=== PATIENT | male | born 1960 | race Caucasian/White ===

== ENCOUNTER 2018-01-26 16:12 | Observation (INO) | payer MEDICARE, OTHER ==
--- NOTE | 2018-01-26 16:38 | Emergency Department Record ---
History of Present Illness - General Chief Complaint: Shortness of breath Stated Complaint: NOEMY,HI HEART RATE Time Seen by Provider: 01/26/18 16:26 Source: Patient Mode of Arrival: Ambulatory Limitations: No limitations - History of Present Illness Initial Comments: 58 yo male presents with a rapid heart rate that started while walking his dogs. His heart rate has not slowed down with 1.5 hours of rest. He walks his dogs on a regular basis without the symptoms. No chest pain. He has a history of mitral valve replacement and repair in 2000 and 2013. He had a STEMI with cardiac arrest in 2013. This lead to emergent stent and then bypass. Bypass was at [facility]. No other recent illness. No cough. No edema. Recently he has not had any issues with his normal activity. No leg swelling. No history of DVT or PE. No immobilization MD Complaint: Shortness of breath Onset/Timin -: Hour(s) Improves With: Nothing Worsens With: Nothing Known History Of: Congestive heart failure Associated Symptoms: Denies other symptoms Treatments Prior to Arrival: None - Related Data Home Oxygen Therapy: No Allergies Allergy/AdvReac Type Severity Reaction Status Date / Time NO KNOWN DRUG ALLERGY Allergy Uncoded 01/31/14 10:10 Travel Screening - Travel/Exposure Within Last 30 Days Have you traveled within the last 30 days?: No Review of Systems Constitutional: Denies: Chills, Fever, Malaise, Weakness Eyes: Denies: Eye discharge ENT: Denies: Congestion, Throat pain Respiratory: Reports: Dyspnea. Denies: Cough, Hemoptysis, Stridor, Wheezes Cardiovascular: Reports: Palpitations. Denies: Chest pain, Syncope Endocrine: Denies: Fatigue, Polydipsia, Polyuria Gastrointestinal: Denies: Abdominal pain, Diarrhea, Nausea, Vomiting Genitourinary: Denies: Dysuria, Frequency, Hematuria Musculoskeletal: Denies: Arthralgia, Back pain, Joint swelling, Myalgia Skin: Denies: Bruising, Change in color, Rash Neurological: Denies: Confusion, Headache, Numbness, Weakness Psychiatric: Denies: Anxiety Hematological/Lymphatic: Denies: Blood Clots, Easy bleeding, Easy bruising, Swollen glands Past Medical History - SOCIAL HISTORY Smoking Status: Former smoker Alcohol Use: None Drug Use: None - RESPIRATORY Hx Respiratory Disorders: No - CARDIOVASCULAR Hx Cardio Disorders: Yes Hx Cardiac Cath: Yes Hx Chest Pain: Yes Hx CHF: Yes Hx Heart Attack: Yes Hx Hypertension: Yes Hx Irregular Heartbeat: Yes - NEURO Hx Neuro Disorders: No - GI Hx GI Disorders: No - Hx Genitourinary Disorders: No - ENDOCRINE Hx Endocrine Disorders: No - MUSCULOSKELETAL Hx Musculoskeletal Disorders: Yes Hx Arthritis: Yes Hx Osteoporosis: Yes Comment:: RA - PSYCH Hx Psych Problems: No - HEMATOLOGY/ONCOLOGY Hx Hematology/Oncology Disorders: No Family Medical History Any Significant Family History?: No Physical Exam - General General Appearance: Alert, Oriented x3, Cooperative, No acute distress Limitations: No limitations - Head Head exam: Normal inspection - Eye Eye exam: Normal appearance, PERRL. negative: Conjunctival injection, Scleral icterus - ENT ENT exam: Normal exam Ear exam: Normal external inspection Nasal Exam: Normal inspection Mouth exam: Normal external inspection Teeth exam: Normal inspection Throat exam: Normal inspection - Neck Neck exam: Normal inspection, Full ROM. negative: Tenderness - Respiratory Respiratory exam: Normal lung sounds bilaterally. negative: Accessory muscle use, Chest wall tenderness, Decreased breath sounds, Respiratory distress, Rhonchi, Stridor, Wheezes - Cardiovascular Cardiovascular Exam: Normal rhythm, Normal heart sounds, Tachycardia. negative : Diastolic murmur, Irregular rhythm, Systolic murmur Peripheral Pulses: 2+: Radial (R), Radial (L) - GI/Abdominal GI/Abdominal exam: Soft. negative: Tenderness - Rectal Rectal exam: Deferred - exam: Deferred - Extremities Extremities exam: Normal inspection, Full ROM, Normal capillary refill. negative: Tenderness - Back Back exam: Denies: CVA tenderness (R), CVA tenderness (L), Paraspinal tenderness , Tenderness, Vertebral tenderness - Neurological Neurological exam: Alert, Normal gait, Oriented X3 - Psychiatric Psychiatric exam: Normal affect, Normal mood - Skin Skin exam: Dry, Intact, Normal color, Warm Course Vital Signs 01/26/18 16:16 Temperature 97.5 F L Pulse Rate 126 H Respiratory 20 Rate Blood Pressure 154/85 Pulse Ox 98 - Reevaluation(s) Reevaluation #1: EKG Sinus tachycardia rate at 125, LBBB, axis L, ST CW BBB. No ST elevation. New LBBB since 10/25/14 01/26/18 16:39 01/26/18 17:21 The labs were reviewed No acute changes on the CBC The Troponin is negative The BNP is elevated at 447 The HR is improved at 88. 01/26/18 17:56 The CXR was reviewed Hyperinflation. No acute process The HR is down to low 90's. The patient remains asymptomatic 01/26/18 18:36 The patient was given the option of transfer to [facility] where his junior buyer is vs OBS at [facility] given ECHO and cardiology is available tomorrow He and his family elected to stay at [facility] if possible He is improved and stable for admission to [facility] The case was discussed with Dr Simmons The patient will be admitted to OBS on a monitor for his tachycardia, consult cardiology and ECHO 01/26/18 19:02 01/26/18 19:03 Medical Decision Making - Lab Data Result diagrams: 01/26/18 16:30 01/26/18 16:30 Disposition Disposition: Admit Clinical Impression: Tachycardia Disposition: Acute Care Hospital Transfer Decision to Admit: Admit from ER Decision to Admit Date: 01/26/18 Decision to Admit Time: 18:34 Condition: (2) Stable Forms: Patient Portal Access Time of Disposition: 18:34 Quality - Quality Measures Quality Measures: N/A - Blood Pressure Screening Does Patient Have Any of the Following: Active Dx of HTN Blood Pressure Classification: Pre-Hypertensive BP Reading Systolic Measurement: 154 Diastolic Measurement: 85 Screening for High Blood Pressure: Patient Exclusion, Hx of HTN [G9744]
[2018-01-26 16:53] LABS: BASO % 0.5 % (0-6); EOS % 3.3 % (0-6); GRAN % 65.6 % (47-80); HEMATOCRIT 44.2 % (42.0-52.0); HEMOGLOBIN 15.2 gm/dl (14.0-18.0); LYMPH % 21.2 % (16-45); MEAN CELL VOLUME 94.6 fl (81-97); MEAN CORPUSCULAR HEMOGLOBIN 32.5 pg (27-33); MEAN CORPUSCULAR HGB CONC 34.4 g/dl (32-36); MEAN PLATELET VOLUME 10.6 fl (7.4-10.4); MONO % 9.4 % (0-9); PLATELET COUNT 286 K/uL (130-400); RED BLOOD COUNT 4.67 M/uL (4.40-5.70); RED CELL DISTRIBUTION WIDTH 14.2 % (11.5-14.5); WHITE BLOOD COUNT W/O DIFF 7.6 K/uL (4.2-12.2)
[2018-01-26 16:59] LABS: BLOOD UREA NITROGEN 17 mg/dL (6-20)
[2018-01-26 17:00] LABS: CREATININE 1.2 mg/dL (0.7-1.2); EST GLOMERULAR FILTRATION RATE > 60 mL/min; TOTAL PROTEIN 7.9 g/dL (6.6-8.7)
[2018-01-26 17:02] LABS: GLUCOSE,RANDOM 129 mg/dL (74-109); PARTIAL THROMBOPLASTIN TIME 27.8 SECONDS (24.5-39.1); PROTHROMBIN TIME (PATIENT) 11.1 SECONDS (9.5-12.1)
[2018-01-26 17:05] LABS: ALB/GLOB RATIO 1.3 (1.1-1.8); ALBUMIN 4.5 g/dL (4.0-5.0); ALKALINE PHOSPHATASE 67 U/L (40-129); ALT/SGPT 37 U/L (<41); AST/SGOT 33 U/L (10.0-50.0)
[2018-01-26 17:16] LABS: THYROID STIMULATING HORMONE 2.22 uIU/mL (0.270-4.20)
[2018-01-26] MEDS ORDERED: 0.9 % SODIUM CHLORIDE 1000ML 1,000 ML IV PRN (20:00)
[2018-01-26] MEDS: CHOLECALCIFEROL 1,000 UNIT TABLET PO SCH (21:55)
[2018-01-26] MEDS: FOLIC ACID 1 MG TABLET PO SCH (21:55)
[2018-01-26] MEDS: METOPROLOL TART 25 MG TABLET PO SCH (21:55)
[2018-01-26] MEDS: FERROUS SULFATE 325 MG TAB PO SCH (21:55)
[2018-01-26] MEDS: HYDROXYCHLOROQUINE SULFATE 200 MG TABLET PO SCH (21:55)
[2018-01-26] MEDS ORDERED: DIPHENHYDRAMINE HCL 25 MG CAPSULE PO ONE (21:59)
[2018-01-26] MEDS ORDERED: ATORVASTATIN 20 MG TABLET PO SCH (22:00)
--- NOTE | 2018-01-27 07:22 | RADIOLOGY REPORT ---
EXAM: CHEST, TWO VIEWS HISTORY: CHEST PAIN. TECHNIQUE: Frontal and lateral views of the chest were obtained. Comparison: 10/25/14 chest. FINDINGS: The heart size is stable. Stable post surgical change. The lungs are hyperinflated, but clear. No pneumothorax. IMPRESSION: STABLE POST SURGICAL CHANGE AND UNDERLYING HYPERINFLATION. JOB NUMBER: [id number] MTDD
[2018-01-27] MEDS ORDERED: LISINOPRIL 5 MG TABLET PO SCH (10:00)
[2018-01-27] MEDS ORDERED: ENOXAPARIN 40 MG/0.4 ML SYR SQ SCH (10:00)
[2018-01-27] MEDS ORDERED: SPIRONOLACTONE 25 MG TAB PO SCH (10:00)
[2018-01-27] MEDS ORDERED: ASPIRIN 81 MG CHEWABLE TABLET PO SCH (10:00)
[2018-01-27] MEDS: FERROUS SULFATE 325 MG TAB PO SCH (10:10)
[2018-01-27] MEDS: CHOLECALCIFEROL 1,000 UNIT TABLET PO SCH (10:10)
[2018-01-27] MEDS: HYDROXYCHLOROQUINE SULFATE 200 MG TABLET PO SCH (10:10)
[2018-01-27] MEDS: FOLIC ACID 1 MG TABLET PO SCH (10:10)
[2018-01-27] MEDS: METOPROLOL TART 25 MG TABLET PO SCH (10:10)
--- NOTE | 2018-01-27 12:11 | History and Physical Report ---
This is an observation patient. DATE: 01/26/2018 CHIEF COMPLAINT: Tachycardia, palpitations while walking his dog. A 58-year-old male with a history of mitral valve replacement. HISTORY OF PRESENT ILLNESS: This 58-year-old male was walking his dog yesterday, became short of breath and his heart was racing. He was able to talk the last half mile home and rest. After about an hour, his heart was still going too fast. He went to the emergency department for evaluation and was evaluated by Dr. Blanco and admitted to the hospital for serial cardiac enzymes and cardiology consult. He has had a history of a mitral valve replacement in 2012. He had a STEMI with a cardiac arrest in 2013 and bypass surgery at [facility]. No history of DVT or PE or immobilization. PAST MEDICAL HISTORY: Open heart surgery at [facility] in [place] with mitral valve repair and then in 2012 a mitral valve replacement with bypass at [facility]. Somewhere along the line he had an OH with stents and emergency bypass and a cardiac arrest. He has had ankle surgery. He has had a history of congestive heart failure, coronary artery disease, hypertension, arthritis both rheumatoid and osteoarthritis, osteoporosis. PAST SURGICAL HISTORY: He has had heart surgery in and 2013 with a mitral valve replacement in 2013, STEMI and stents with open heart surgery bypass grafting [facility]. MEDICATIONS: 1. Methotrexate 10 mg weekly. 2. Ferrous sulfate 325 b.i.d. 3. Vitamin D3, 1000 units b.i.d. 4. Lipitor 40 mg daily. 5. Aspirin 81 mg daily. 6. Humira 40 mg weekly. 7. Lopressor 25 mg b.i.d. 8. Zestril 5 mg daily. 9. Plaquenil 200 mg b.i.d. 10. Folic acid 1 mg b.i.d. 11. Aldactone 12.5 daily. ALLERGIES: No known allergies. FAMILY/PSYCHOSOCIAL HISTORY: No significant family history. He is a former smoker. He stopped smoking in 2012. No drug or alcohol use. REVIEW OF SYSTEMS: HEENT: No upper respiratory infection symptoms, cough, cold, or congestion. Cardiovascular: No chest pain but he had palpitations, tachycardia, and shortness of breath. Respiratory: Short of breath. No cough, cold, or congestion. Ex-smoker, stopped in 2012. Gastrointestinal: No nausea, vomiting, diarrhea, black stools, or bloody stools. Genitourinary: No dysuria, hematuria, frequency, or burning on urination. Musculoskeletal: He has osteoarthritis, moving all 4 extremities. Neurological: No CVA, paralysis, or paresthesias. Endocrine: No diabetes or thyroid disease. Integument: No rash, ulcers, change in moles, or yellow skin. PHYSICAL EXAMINATION: VITALS: Height 5 feet 11 inches, weight 250 pounds. Temperature 97.7, pulse 64, blood pressure 136/97, respiratory rate 16, pulse ox 97% on room air, weight 250 pounds. HEENT: Pupils are equal, round, and reactive to light and accommodation. Extraocular muscles are intact. Throat is clear. Nose is clear. Tympanic membranes are blackman. NECK: Supple. No jugular venous distention. No hepatojugular reflux. No carotid bruits. Thyroid is smooth. CARDIOVASCULAR: Regular rate and rhythm without murmurs, clicks, rubs, or gallops. RESPIRATORY: Clear to auscultation and percussion. ABDOMEN: Soft, nontender. No hepatosplenomegaly, no masses, no tenderness. Bowel sounds are active. EXTREMITIES: No pitting edema. No cyanosis, no clubbing. Full range of motion. BREASTS: Normal male breasts. RECTAL: Exam deferred. GENITALIA: Deferred. NEUROLOGIC: Cranial nerves II-XII intact. No gross defects. Sensation normal, strength normal. Deep tendon reflexes equal bilaterally with Babinski negative. MENTAL STATUS: Alert and oriented x3. IMPRESSION: 1. Tachycardia. 2. Palpitations. 3. History of mitral valve replacement. 4. Abnormal EKG. Appears either possibly a second-degree heart block 4 to 1, type 2, or atrial flutter/fib. PLAN: Cardiology consult. Serial cardiac enzymes and so far 3 of them have been negative. He had a left bundle-branch block when his heart rate was fast. MTDD
--- NOTE | 2018-01-27 18:02 | Discharge Note ---
VTE H&P Assessment - Risk for VTE Risk for VTE: Yes Risk Level: Moderate Risk Assessment Date: 01/27/18 Risk Assessment Time: 09:00 VTE Orders Placed or Will Be Placed: Yes Discharge Medications - Discharge Medications Home Medications: Ambulatory Orders Adalimumab [Humira Pen Psoriasis-Uveitis] 40 mg SQ WEEKLY 02/04/14 [Last Taken 05/29/16] Aspirin Chewable 81 mg PO DAILY 02/04/14 [Last Taken 06/10/16] Ferrous Sulfate 325 mg PO BID 02/04/14 [Last Taken 06/10/16] Folic Acid 1 tab PO BID 02/04/14 [Last Taken 06/10/16] Lisinopril [Zestril] 5 mg PO DAILY 02/04/14 [Last Taken 06/09/16] Methotrexate Sodium [Methotrexate] 10 mg PO WEEKLY 02/04/14 [Last Taken 06/06/16 ] Metoprolol Tartrate [Lopressor] 25 mg PO BID 02/04/14 [Last Taken 06/10/16] Spironolactone [Aldactone] 12.5 mg PO DAILY 02/04/14 [Last Taken 06/10/16] Atorvastatin Calcium [Lipitor] 40 mg PO QHS 06/10/16 [Last Taken 06/10/16] Cholecalciferol (Vitamin D3) [Vitamin D3] 1,000 unit PO BID 06/10/16 [Last Taken 06/10/16] Hydroxychloroquine Sulfate [Plaquenil] 200 mg PO BID 06/10/16 [Last Taken ] Discharge Note - Date Date of Discharge Note: 01/27/18 Disposition: Home, Self-Care Condition: (2) Stable Additional Instructions: follow up with pediatric rn for further evaluation follow up with the [facility] primary in 1 [address] Nessa Mukherjee Forms: Patient Portal Access Activity at Discharge: Increase Activity as Tolerated
--- NOTE | 2018-01-28 05:53 | Medical Records Consult ---
DATE: 01/27/2018. HISTORY OF PRESENT ILLNESS: Mr. Jones is 58 years old and was referred for cardiology for tachycardia and palpitations. He was walking his dog the day prior to admission. He states he has two dogs and he usually walks each dog three miles. He states while walking the second dog he noted sudden onset of a fast heart rate. He went home and checked his blood pressure which was in the 150s/90s. His heart rates remained in the 120s, and therefore he presented to [facility] due to his history of heart disease. Mr. Jones has a remote history of mitral valve ring placement and single-vessel coronary bypass in 2000 at [facility] in [place]. In 2012 he presented with an acute myocardial infarction and had stent placement at [facility]. He was then referred to the [facility] for mitral valve replacement with a bioprosthetic valve. 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 He denies any recent angina, transient ischemic attack, syncope, or heart failure symptoms. His ECG demonstrated sinus tachycardia with a left bundle branch block. He had a subsequent ECG which demonstrated possible atrial flutter with rates in the 50s, normal R-wave progression, and a QRS of 129 milliseconds. PAST MEDICAL HISTORY: His past medical history includes coronary artery disease , mitral valve ring placement in 2000, mitral valve replacement in 2012, cardiac stent placement in 2012 at [facility], hypertension, rheumatoid arthritis, osteoporosis, and osteoarthritis. PAST SURGICAL HISTORY: His past surgical history includes a mitral valve ring replacement in 2000, coronary artery bypass times one in 2012, bioprosthetic mitral valve replacement at the [facility] also in 2012, coronary artery disease with stent placement at [facility], and ankle surgery. MEDICATIONS AT HOME: Aldactone 12.5 mg daily, Lopressor 25 mg b.i.d., Zestril 5.0 mg daily, Plaquenil 200 mg b.i.d., folic acid 1.0 mg b.i.d., Humira 40 mg weekly, aspirin 81 mg daily, Lipitor 40 mg daily, ferrous sulfate 325 mg b.i.d. , methotrexate 10 mg weekly. ALLERGIES: None. SOCIAL HISTORY: He is currently disabled. He denies tobacco or alcohol use currently. He is a former smoker. PHYSICAL EXAMINATION: Vital Signs: He is afebrile. Vital signs are currently stable. Lungs: Clear to auscultation. Cardiac: Cardiac examination is normal. Abdomen: The abdomen is obese. Extremities: The extremities reveal no edema. DIAGNOSTIC STUDIES: Telemetry demonstrates sinus rhythm with rates in the 60s. IMPRESSION AND PLAN: Mr. Jones presents with sudden onset of fast heart rates while walking dogs. He has a history of coronary artery disease and mitral valve replacement. We have no recent echocardiogram or further records to review. His cardiac enzymes and laboratory profile are within normal limits. His ECG currently demonstrates sinus rhythm with rates in the 60s. Mr. Jones may have had underlying atrial flutter versus atrial fibrillation. At this time, I recommend he just maintain his current home regimen. He can be safely discharged to follow up with his [facility] platform mill supervisor. Further workup can then be performed by them without having to transfer him now for further cardiac workup. JOB NUMBER: [id number] MTDD
--- NOTE | 2018-01-28 12:30 | Discharge Summary ---
DATE: 01/27/2018 DISCHARGE DIAGNOSES: 1. Tachycardia, resolved. 2. History of coronary artery disease. 3. History of mitral valve replacement. 4. Palpitations. ATTENDING PHYSICIAN: Shun Simmons DO REASON FOR HOSPITALIZATION: Tachycardia, palpitations while walking his dog, history of mitral valve replacement. This 58-year-old male was walking his dog yesterday, became short of breath and his heart was racing. He was able to walk the last half mile home. He rested for about an hour and still was tachycardic, came to the emergency department for evaluation. Dr. Blanco evaluated him and admitted him to the hospital for serial cardiac enzymes and cardiology consult. He had a history of mitral valve replacement in 2012. He had a STEMI with cardiac arrest in 2013, bypass surgery at [facility]. No history of DVT or PE or embolization recently. SIGNIFICANT FINDINGS: EKGs show a rate dependent left bundle-branch block. He has had possible either secondary heart block, 4-to-1 block, type II, or atrial fib/flutter atypical. Short run. He is now in normal sinus rhythm. Chest x-ray showed stable postsurgical changes, underlying hyperinflation. Cardiology consult with Dr. Garcia. [place] it was safe to go home. No signs of an NC. He felt because he had already seen the [facility] [place] strategic marketing manager, he recommends following up with them for further outpatient therapy if indicated. Also recommend he follow up with his primary [facility] doctor in 1-2 weeks. It may be hard to get into the strategic marketing manager but patient thought he could get directly in and I encouraged him to go ahead and call and see if he could get an appointment for followup. Otherwise, follow up with his primary [facility] doctor for further evaluation. His cardiac enzymes x3 were negative, troponin T. His brain natriuretic peptide was slightly elevated at 447.5. His BUN was 17, creatinine 1.2, white count 7600, hemoglobin 15.2. TSH was 2.22. THERAPY PROVIDED: He had cardiac monitoring and observation. He has been asymptomatic since coming into the hospital. HOSPITAL COURSE: Unremarkable and feeling much better. CONDITION ON DISCHARGE: Much improved. Discussed the case with Dr. Garcia, strategic marketing manager, and he recommended following up with the [facility] and the [facility] strategic marketing manager because he has already had quite a bit of a workup done already. DISCHARGE INSTRUCTIONS: Follow up with the [facility] primary doctor in 1-2 weeks, follow up with a strategic marketing manager, [facility] strategic marketing manager in 1-2 weeks. Continue his home medications and if he has any problems, return to the emergency department. His current medications are methotrexate 10 mg weekly, ferrous sulfate 325 b.i.d., vitamin D3 1000 units b.i.d., Lipitor 40 mg daily, aspirin 81 mg daily, Humira 40 mg weekly, Lopressor 25 mg b.i.d. Zestril 5 mg daily, Plaquenil 200 mg b.i.d., folic acid 1 mg b.i.d., Aldactone 12.5 mg daily. CC: Dr. Radha PARK
[2018-01-29] MEDS ORDERED: METHOTREXATE SODIUM 10 MG PO SCH (10:00)
[2018-02-02] MEDS ORDERED: ADALIMUMAB 40 MG SQ SCH (10:00)
== END 2018-01-27 18:33 | disposition home or self-care (01) ==
LOC: ER 16:12 → MEDSURG 19:46
PROVIDERS: ADMIT Emergency Medicine; ATTEND Emergency Medicine
DX: R00.0 Tachycardia, unspecified (principal); R00.2 Palpitations; I50.9 Heart failure, unspecified; M06.9 Rheumatoid arthritis, unspecified; I49.9 Cardiac arrhythmia, unspecified; I25.2 Old myocardial infarction; Z87.891 Personal history of nicotine dependence; Z95.2 Presence of prosthetic heart valve; Z79.01 Long term (current) use of anticoagulants
CPT/HCPCS: 85025; 85730; 85610; 80053; 84443; 84484 ×2; 83880; 71046; 93005 ×2; 93010 ×2; G0378 ×2; 99220; 99285

== ENCOUNTER 2018-03-05 00:53 | Emergency (ER) | payer MEDICARE ==
[2018-03-05] MEDS ORDERED: ASPIRIN 81 MG CHEWABLE TABLET PO ONE (01:07)
--- NOTE | 2018-03-05 01:09 | Emergency Department Record ---
History of Present Illness - General Chief Complaint: Palpitations Stated Complaint: PALPITATIONS Time Seen by Provider: 03/05/18 00:56 Source: Patient Mode of Arrival: Ambulatory Limitations: No limitations - History of Present Illness Initial Comments: 58 yo male presents to ED for evaluation or palpitations, fatigue, and exertional dyspnea for the past several weeks. Patient reports a history of atrial fibrillation s/p cardioversion 5 weeks ago, takes Eliquis as well. Patient also reports a history or AL that presented with similar symptoms, denies chest pain or discomfort when his AL occurred. Patient also reports minor cough, congestion symptoms x 5 days, is concerned about possible pneumonia. MD Complaint: Palpitations -: Days(s) Arrythmia History: Atrial fibrillation Associated Symptoms: Shortness of breath - Related Data Home Medications Medication Instructions Recorded Confirmed Last Taken Apixaban [Eliquis] 5 mg PO BID 03/05/18 03/05/18 03/04/18 Metoprolol Succinate 50 mg PO DAILY 03/05/18 03/05/18 03/04/18 Allergies Allergy/AdvReac Type Severity Reaction Status Date / Time No Known Drug Allergies Allergy Verified 03/05/18 00:54 Travel Screening - Travel/Exposure Within Last 30 Days Have you traveled within the last 30 days?: No - Travel Symptoms Symptom Screening: None Review of Systems Constitutional: Denies: Chills, Fever, Malaise, Night sweats Eyes: Denies: Eye discharge, Eye pain ENT: Reports: Congestion. Denies: Ear pain, Epistaxis Respiratory: Reports: Cough, Dyspnea Cardiovascular: Reports: Dyspnea on exertion. Denies: Chest pain Endocrine: Denies: Fatigue, Heat or cold intolerance Gastrointestinal: Denies: Abdominal pain, Nausea, Vomiting Genitourinary: Denies: Incontinence, Retention Musculoskeletal: Denies: Arthralgia, Back pain Skin: Denies: Bruising, Change in color Neurological: Denies: Abnormal gait, Confusion, Headache, Seizure Psychiatric: Denies: Anxiety Hematological/Lymphatic: Reports: Easy bleeding, Easy bruising. Denies: Anemia , Blood Clots Past Medical History - SOCIAL HISTORY Smoking Status: Former smoker - RESPIRATORY Hx Respiratory Disorders: No - CARDIOVASCULAR Hx Cardio Disorders: Yes Hx Cardiac Cath: Yes Hx Chest Pain: Yes Hx CHF: Yes Hx Heart Attack: Yes Hx Hypertension: Yes Hx Irregular Heartbeat: Yes (A-fib; cardioverted 01/2018) - NEURO Hx Neuro Disorders: No - GI Hx GI Disorders: No - Hx Genitourinary Disorders: No - ENDOCRINE Hx Endocrine Disorders: No - MUSCULOSKELETAL Hx Musculoskeletal Disorders: Yes Hx Arthritis: Yes (rheumatoid) Hx Osteoporosis: Yes - PSYCH Hx Psych Problems: No - HEMATOLOGY/ONCOLOGY Hx Hematology/Oncology Disorders: No Family Medical History Any Significant Family History?: Yes Hx HTN: Father Physical Exam - General General Appearance: Alert, Oriented x3, Cooperative, Mild distress Limitations: No limitations - Head Head exam: Atraumatic, Normocephalic, Normal inspection Head exam detail: negative: Abrasion, Contusion, Lugo's sign, General tenderness, Hematoma, Laceration - Eye Eye exam: Normal appearance. negative: Conjunctival injection, Periorbital swelling, Periorbital tenderness, Scleral icterus - ENT Ear exam: negative: Auricular hematoma, Auricular trauma Nasal Exam: negative: Active bleeding, Discharge, Dried blood, Foreign body Mouth exam: negative: Drooling, Laceration, Muffled voice, Tongue elevation - Neck Neck exam: Normal inspection. negative: Meningismus, Tenderness - Respiratory Respiratory exam: Normal lung sounds bilaterally. negative: Rales, Respiratory distress, Rhonchi, Stridor - Cardiovascular Cardiovascular Exam: Normal heart sounds, Irregular rhythm - GI/Abdominal GI/Abdominal exam: Soft. negative: Rebound, Rigid, Tenderness - Rectal Rectal exam: Deferred - exam: Deferred - Extremities Extremities exam: Normal inspection. negative: Calf tenderness, Pedal edema, Tenderness - Back Back exam: Denies: CVA tenderness (R), CVA tenderness (L) - Neurological Neurological exam: Alert, Normal gait, Oriented X3 - Psychiatric Psychiatric exam: Normal affect, Normal mood - Skin Skin exam: Normal color. negative: Abrasion Type of lesion: negative: abrasion Course Vital Signs 03/05/18 00:58 Temperature 97.8 F Pulse Rate [ 76 Pulse Ox Probe] Respiratory 20 Rate Blood Pressure 163/102 [Left Arm] Pulse Ox 96 - Reevaluation(s) Reevaluation #1: 03/05/18 01:08 EKG: NSR 71 LAD, IVCD Q waves III, AVF no acute ST-T wave changes No previous for comparison. Reevaluation #2: 03/05/18 01:44 Labs reviewed and are grossly unremarkable for an acute process. Reevaluation #3: 03/05/18 01:52 Portable CXR: Cardiomegaly, no acute process Patient and his SO were updated on all results thus far, will initiate transfer to [facility] for cardiac evaluation. Reevaluation #4: 03/05/18 02:01 Case was discussed with Dr. Garcia, will accept transfer for further cardiac evaluation. Medical Decision Making - Lab Data Result diagrams: 03/05/18 01:10 03/05/18 01:10 Disposition Disposition: Transfer Clinical Impression: Palpitations, Atypical chest pain Disposition: Home, Self-Care Transfer To: [facility] Reason For Transfer: Cardiac evaluation Accepting Physician: Jose Time Discussed w/Accepting Physician: 02:02 Condition: (2) Stable Forms: Patient Portal Access Time of Disposition: 02:02 Quality - Quality Measures Quality Measures: N/A - Blood Pressure Screening Does Patient Have Any of the Following: Active Dx of HTN Blood Pressure Classification: Hypertensive Reading Systolic Measurement: 163 Diastolic Measurement: 102 Screening for High Blood Pressure: Patient Exclusion, Hx of HTN [G9744]
[2018-03-05 01:26] LABS: BASO % 0.5 % (0-6); EOS % 5.1 % (0-6); GRAN % 42.4 % (47-80); HEMATOCRIT 41.8 % (42.0-52.0); HEMOGLOBIN 14.1 gm/dl (14.0-18.0); LYMPH % 40.5 % (16-45); MEAN CELL VOLUME 95.4 fl (81-97); MEAN CORPUSCULAR HGB CONC 33.7 g/dl (32-36); MEAN PLATELET VOLUME 10.9 fl (7.4-10.4); MONO % 11.5 % (0-9); PLATELET COUNT 273 K/uL (130-400); RED BLOOD COUNT 4.38 M/uL (4.40-5.70); RED CELL DISTRIBUTION WIDTH 13.8 % (11.5-14.5); WHITE BLOOD COUNT W/O DIFF 7.6 K/uL (4.2-12.2)
[2018-03-05 01:27] LABS: MEAN CORPUSCULAR HEMOGLOBIN 32.1 pg (27-33)
[2018-03-05 01:36] LABS: BLOOD UREA NITROGEN 16 mg/dL (6-20); EST GLOMERULAR FILTRATION RATE > 60 mL/min
[2018-03-05 01:37] LABS: TOTAL PROTEIN 7.4 g/dL (6.6-8.7)
[2018-03-05 01:39] LABS: GLUCOSE,RANDOM 103 mg/dL (74-109)
[2018-03-05 01:41] LABS: ALB/GLOB RATIO 1.3 (1.1-1.8); ALBUMIN 4.2 g/dL (4.0-5.0); ALKALINE PHOSPHATASE 69 U/L (40-129); ALT/SGPT 40 U/L (<41); AST/SGOT 29 U/L (10.0-50.0)
--- NOTE | 2018-03-06 13:26 | RADIOLOGY REPORT ---
EXAM: PORTABLE CHEST HISTORY: DIFFICULTY BREATHING. TECHNIQUE: A portable frontal view of the chest was obtained. Comparison: 01/26/18 chest. FINDINGS: The heart size is stable. Stable post surgical change. The lungs are clear. No pneumothorax. IMPRESSION: STABLE CARDIOMEGALY AND POST SURGICAL CHANGE. JOB NUMBER: [id number] MTDD
== END 2018-03-05 03:35 | disposition home or self-care (01) ==
LOC: ER 00:53
DX: R00.2 Palpitations (principal); R07.89 Other chest pain; R06.02 Shortness of breath; R05 Cough; I50.9 Heart failure, unspecified; I25.2 Old myocardial infarction; I48.91 Unspecified atrial fibrillation; Z79.01 Long term (current) use of anticoagulants; Z87.891 Personal history of nicotine dependence
CPT/HCPCS: 71045; 80053; 84484; 85025; 93005; 93010; 99285

== ENCOUNTER 2018-04-06 11:18 | Emergency (ER) | payer MEDICARE, OTHER ==
[2018-04-06] MEDS ORDERED: ASPIRIN 325 MG TABLET PO ONE (11:35)
--- NOTE | 2018-04-06 11:43 | Emergency Department Record ---
History of Present Illness - General Chief Complaint: Arrythmia/Palpitations Stated Complaint: PALPITATIONS Time Seen by Provider: 04/06/18 11:30 Source: Patient Mode of Arrival: EMS Limitations: No limitations - History of Present Illness Initial Comments: The patient is here due to intermittent Palpitations for the last week. The onset is mainly with exertion. He denies any CP or SOB but he did have mild pressure for a few minutes an hour ago. The patient has an extensive cardiac hx with LA's and stents and did have a cardioversion 3 months ago. The patient is presently taking Eliquis. Complaint: Palpitations Onset/Timin -: Week(s) Treatments Prior to Arrival: Beta-esau - Related Data Allergies Allergy/AdvReac Type Severity Reaction Status Date / Time No Known Drug Allergies Allergy Verified 03/05/18 00:54 Travel Screening - Travel/Exposure Within Last 30 Days Have you traveled within the last 30 days?: No - Travel/Exposure Within Last Year Have you traveled outside the [place] in the last year?: No - Additonal Travel Details Have you been exposed to anyone with a communicable illness?: No - Travel Symptoms Symptom Screening: None Review of Systems Constitutional: Denies: Chills, Fever Eyes: Denies: Eye discharge ENT: Denies: Congestion Respiratory: Denies: Cough, Dyspnea Cardiovascular: Reports: Arrhythmia, Dyspnea on exertion. Denies: Chest pain Endocrine: Reports: Fatigue Gastrointestinal: Denies: Abdominal pain Genitourinary: Denies: Dysuria Musculoskeletal: Denies: Arthralgia Past Medical History - SOCIAL HISTORY Smoking Status: Former smoker Alcohol Use: None Drug Use: None - RESPIRATORY Hx Respiratory Disorders: No - CARDIOVASCULAR Hx Cardio Disorders: Yes Hx Cardiac Cath: Yes Hx Chest Pain: Yes Hx CHF: Yes Hx Heart Attack: Yes (2000, 2012) Hx Hypertension: Yes Hx Irregular Heartbeat: Yes (A-fib; cardioverted 01/2018) - NEURO Hx Neuro Disorders: No - GI Hx GI Disorders: No - Hx Genitourinary Disorders: No - ENDOCRINE Hx Endocrine Disorders: No - MUSCULOSKELETAL Hx Musculoskeletal Disorders: Yes Hx Arthritis: Yes (rheumatoid) Hx Osteoporosis: Yes - PSYCH Hx Psych Problems: No - HEMATOLOGY/ONCOLOGY Hx Hematology/Oncology Disorders: No Family Medical History Any Significant Family History?: No Hx HTN: Father Physical Exam - General General Appearance: Alert, Oriented x3, Cooperative, No acute distress - Head Head exam: Atraumatic, Normocephalic, Normal inspection - Eye Eye exam: Normal appearance, PERRL, EOMI - ENT Throat exam: Normal inspection. negative: Tonsillar erythema, Tonsillar exudate - Neck Neck exam: Normal inspection, Full ROM. negative: Tenderness - Respiratory Respiratory exam: Normal lung sounds bilaterally. negative: Respiratory distress - Cardiovascular Cardiovascular Exam: Regular rate, Normal rhythm, Normal heart sounds. negative : Irregular rhythm - GI/Abdominal GI/Abdominal exam: Soft, Normal bowel sounds. negative: Tenderness - Extremities Extremities exam: Normal inspection, Full ROM, Normal capillary refill. negative: Tenderness - Neurological Neurological exam: Alert. negative: Motor sensory deficit Course Vital Signs 04/06/18 11:20 Temperature 97.8 F Pulse Rate 71 Respiratory 18 Rate Blood Pressure 154/101 Pulse Ox 96 - Reevaluation(s) Reevaluation #1: The patient is very stable at this time. He denies any pain or discomfort. I explained to the patient that I would like to try to transfer him to the [facility] per his wishes. The patient states since his workup is all neg and he is in NSR he would like to be discharged from here and just drive there. I explained to the patient that I am not recommending that he should do that (due to it being an EMTALA violation) and he would need to leave here AM for that to happen. I explained to him that the risks of leaving are that he could have a stroke, LA, become disabled and even . The patient understands the risks and accepts the risks. The patient presently has proper decision making capacity and understands and accepts the risks. The conversation was witnessed by Aleyda BRENNER). 04/06/18 12:44 Reevaluation #2: I also offered to facilitate the transfer from the ER here to the [place] but the patient did refuse that also. Aleyda BRENNER) did witness that conversation also. 04/06/18 13:06 Medical Decision Making - Data Complexity MDM Data: Labs Ordered and/or Reviewed, EKG Ordered and/or Reviewed - Lab Data Result diagrams: 04/06/18 11:46 04/06/18 11:46 - EKG Data -: EKG Interpreted by Me EKG: No Acute Changes (NSR at 71.), Unchanged From Previous Disposition Disposition: Discharge Clinical Impression: Palpitations Disposition: Against Medical Advice Condition: (2) Stable Instructions: Heart Palpitations (ED) Additional Instructions: Please see your family doctor ROBERT and return to the ER for any problems. Forms: Patient Portal Access Time of Disposition: 12:48 Quality - Quality Measures Quality Measures: N/A - Blood Pressure Screening View Details: Yes Does Patient Have Any of the Following: Active Dx of HTN Blood Pressure Classification: Hypertensive Reading Systolic Measurement: 141 Diastolic Measurement: 90 Screening for High Blood Pressure: Patient Exclusion, Hx of HTN [G9744]
[2018-04-06 11:54] LABS: BASO % 1.2 % (0-6); EOS % 6.2 % (0-6); GRAN % 57.3 % (47-80); HEMATOCRIT 39.2 % (42.0-52.0); HEMOGLOBIN 13.4 gm/dl (14.0-18.0); LYMPH % 23.7 % (16-45); MEAN CELL VOLUME 95.4 fl (81-97); MEAN CORPUSCULAR HEMOGLOBIN 32.6 pg (27-33); MEAN CORPUSCULAR HGB CONC 34.2 g/dl (32-36); MEAN PLATELET VOLUME 10.3 fl (7.4-10.4); MONO % 11.6 % (0-9); PLATELET COUNT 255 K/uL (130-400); RED BLOOD COUNT 4.11 M/uL (4.40-5.70); RED CELL DISTRIBUTION WIDTH 13.9 % (11.5-14.5); WHITE BLOOD COUNT W/O DIFF 5.2 K/uL (4.2-12.2)
[2018-04-06 12:03] LABS: BLOOD UREA NITROGEN 16 mg/dL (6-20); EST GLOMERULAR FILTRATION RATE > 60 mL/min
[2018-04-06 12:06] LABS: GLUCOSE,RANDOM 108 mg/dL (74-109)
[2018-04-06 12:07] LABS: PARTIAL THROMBOPLASTIN TIME 32.5 SECONDS (24.5-39.1); PROTHROMBIN TIME (PATIENT) 11.1 SECONDS (9.5-12.1)
[2018-04-06 12:09] LABS: CREATINE PHOSPHOKINASE 175 U/L (39-308)
== END 2018-04-06 12:54 | disposition left against medical advice (07) ==
LOC: ER 11:18
DX: R00.2 Palpitations (principal); I50.9 Heart failure, unspecified; I10 Essential (primary) hypertension; I25.2 Old myocardial infarction; Z87.891 Personal history of nicotine dependence; Z95.5 Presence of coronary angioplasty implant and graft; Z79.01 Long term (current) use of anticoagulants
CPT/HCPCS: 80048; 82550; 82553; 84484; 85025; 85610; 85730; 93005; 93010; 99284